=== PATIENT | female | born 1960 | race Caucasian/White ===

== ENCOUNTER → 2017-05-26 | Outpatient (CLI) | payer MEDICAID | LOC: BMCIMAGING 16:11 | PROVIDERS: ATTEND Physician Assistant | DX: M25.562 Pain in left knee (principal) ==

== ENCOUNTER 2017-08-26 13:24 | Day surgery (SDC) | payer MEDICAID ==
[2017-08-26] MEDS ORDERED: LIDOCAINE 1% 2 ML INJ ID PRN (13:36)
[2017-08-26] MEDS ORDERED: LR 1,000 ML IV ONE (13:36)
[2017-08-26 14:01] VITALS: PULSE 54
--- NOTE | 2017-08-26 14:05 | PDANEPAE ---
ANE Past Medical History - Cardiovascular History Hx Hypertension: No Hx Arrhythmias: No Hx Chest Pain: No Hx Coronary Artery / Peripheral Vascular Disease: No Hx CHF / Valvular Disease: No Hx Palpitations: No - Pulmonary History Hx COPD: No Hx Asthma/Reactive Airway Disease: No Hx Recent Upper Respiratory Infection: No Hx Oxygen in Use at Home: No Hx Sleep Apnea: No Sleep Apnea Screening Result - Last Documented: Negative - Neurologic History Hx Cerebrovascular Accident: No Hx Seizures: No Hx Dementia: No - Endocrine History Hx Diabetes: No - Renal History Hx Renal Disorders: No - Liver History Hx Hepatic Disorders: No - Neurological & Psychiatric Hx Hx Neurological and Psychiatric Disorders: No - Cancer History Hx Cancer: No - Congenital Disorder History Hx Congenital Disorders: No - GI History Hx Gastrointestinal Disorders: No - Other Health History Other Health History: NONE - Chronic Pain History Chronic Pain: No - Surgical History Prior Surgeries: NONE ANE Review of Systems Review of Systems: - Exercise capacity METS (RN): 4 METS ANE Patient History - Allergies Allergies/Adverse Reactions: amoxicillin Allergy (Verified 07/15/17 14:29) Rash - NPO status NPO Since - Liquids (Date): 08/26/17 NPO Since - Liquids (Time): 12:00 NPO Since - Solids (Date): 08/24/17 - Smoking Hx Smoking Status: Never smoked - Family Anes Hx Family Hx Anesthesia Complications: NONE ANE Labs/Vital Signs - Vital Signs Blood Pressure: 120/69 Heart Rate: 54 Respiratory Rate: 20 O2 Sat (%): 97 Height: 177.8 cm Weight: 73.936 kg ANE Physical Exam - Airway Neck exam: FROM Mallampati Score: Class 2 Mouth exam: normal dental/mouth exam - Pulmonary Pulmonary: no respiratory distress - Cardiovascular Cardiovascular: regular rate and rhythym - ASA Status ASA Status: I ANE Anesthesia Plan Total IV Anesthesia: Yes
[2017-08-26] MEDS ORDERED: fentaNYL 100 MCG/2 ML INJ ONE (14:06)
[2017-08-26] MEDS ORDERED: PROPOFOL/EMULSION 500 MG/50 ML BOTTLE IV ONE (14:07)
[2017-08-26] MEDS ORDERED: LIDOCAINE 2% 100 MG/5 ML SYR ONE (14:07)
--- NOTE | 2017-08-26 14:31 | PDHPUP ---
History & Physical Update H&P update statement: This history and physical update is based on an assessment of the patient which was completed after admission or registration (within 24 hours), but prior to the surgery/procedure. H&P update: H&P reviewed & patient examined, no change in patient's condition since H&P completed
--- NOTE | 2017-08-26 14:31 | GIREPORT ---
[facility] Surgical Services - Endoscopy Department Patient Name: Cheyanne Stoner Procedure Date: 08/26/2017 2:10 PM Patient Type: Outpatient Attending MD/ ER Physician: Balbir Celaya MD Procedure: Colonoscopy Indications: Screening for colon cancer: Family history of colorectal cancer in dist ant relative(s) 60 or older, Surveillance: Personal history of colonic poly ps (unknown histology) on colonoscopy at age 20. No polyps 5 years ago. Providers: Balbir Celaya MD Medicines: General Anesthesia Complications: No immediate complications. Description of Procedure: After obtaining informed consent, the scope was passed under direct vis ion. Throughout the procedure, the patient's blood pressure, pulse, and oxyg en saturations were monitored continuously. The Colonoscope with irrigatio n channel was introduced through the anus and advanced to the terminal il eum. The colonoscopy was performed with ease. The patient tolerated the proc edure well. The quality of the bowel preparation was excellent. Findings: A diffuse area of moderately melanotic mucosa was found in the entire c olon. Estimated blood loss: none. Estimated Blood Loss: Estimated blood loss: none. Post Op Diagnosis: - Melanotic mucosa in the entire examined colon. - No specimens collected. Recommendation: - Discharge patient to home. - Resume previous diet. - Repeat colonoscopy in 10 years for surveillance. Attending Participation: I personally performed the entire procedure. Balbir Celaya MD Balbir Celaya MD 08/26/2017 2:31:05 PM This report has been signed electronicallyRobhelen Celaya MD Number of Addenda: 0 Note Initiated On: 08/26/2017 2:10 PM Total Procedure Duration Time 0 hours 11 minutes 17 seconds [email or web address]
[2017-08-26] MEDS ORDERED: ALBUTEROL 3 ML DEYVIAL IH PRN (14:32)
[2017-08-26] MEDS ORDERED: NALOXONE HCL 0.4 MG/ML INJ IVP PRN (14:32)
--- NOTE | 2017-08-26 14:32 | POSTANESTH ---
Post Anesthetic Evaluation Cardiovascular Status: Similar to Pre-Op Cond Respiratory Status: Similar to Pre-op Cond. Level of Consciousness/Mental Status: Mildly Sleepy, Arousable Pain Control: Adequate, Prn Tx Ordered Nausea/Vomiting Control: Adequate, Prn Tx Ordered Complications Possibly Related to Anesthesia: None Noted
--- NOTE | 2017-08-26 14:33 | POSTOPPROG ---
Post Op Note Date of Operation: 08/26/17 Surgeon: Balbir Celaya Anesthesia: IV Sedation Pre-op Diagnosis: Distant family h/o cancer. Polyps at age 20, unknown type. No polyp 5yr ago Post-op Diagnosis: Melanosis Inf/Abcess present in the surg proc area at time of surgery?: No
[2017-08-26 14:44] VITALS: TEMP 97.9
[2017-08-26 15:14] VITALS: O2SAT 99
[2017-08-26 15:21] VITALS: BP 96/67; RESP 16
== END 2017-08-26 15:35 | disposition home or self-care (01) ==
LOC: FSGY 13:24
PROVIDERS: ATTEND Internal Medicine Gastroenterology
PROC: 0DJD8ZZ Inspection of Lower Intestinal Tract, Via Natural or Artificial Opening Endoscopic (ICD-10-PCS; principal; 2017-08-26 14:30)
DX: Z12.11 Encounter for screening for malignant neoplasm of colon (principal); K63.89 Other specified diseases of intestine; Z86.010 Personal history of colon polyps; Z80.0 Family history of malignant neoplasm of digestive organs
CPT/HCPCS: J2001; J2704; J3010

== ENCOUNTER → 2018-01-01 | Outpatient (CLI) | payer MEDICAID | LOC: BMCIMAGING 15:10 | PROVIDERS: ATTEND Internal Medicine | DX: N85.2 Hypertrophy of uterus (principal); D25.9 Leiomyoma of uterus, unspecified; N85.8 Other specified noninflammatory disorders of uterus; K63.9 Disease of intestine, unspecified ==

== ENCOUNTER → 2018-11-11 | Outpatient (CLI) | payer MEDICAID | LOC: FIMAGING 09:55 | PROVIDERS: ATTEND Physician Assistant | DX: Z01.818 Encounter for other preprocedural examination (principal); M17.12 Unilateral primary osteoarthritis, left knee; M71.22 Synovial cyst of popliteal space [Baker], left knee ==

== ENCOUNTER → 2018-12-24 | Outpatient (CLI) | payer MEDICAID | LOC: FIMAGING 08:22 | PROVIDERS: ATTEND Internal Medicine | DX: Z12.31 Encounter for screening mammogram for malignant neoplasm of breast (principal) ==

== ENCOUNTER 2019-01-10 08:46 | Observation (INO) | payer MEDICAID ==
--- NOTE | 2019-01-10 06:44 | PDHPUP ---
History & Physical Update H&P update statement: This history and physical update is based on an assessment of the patient which was completed after admission or registration (within 24 hours), but prior to the surgery/procedure. H&P update: no change in patient's condition since H&P completed
--- NOTE | 2019-01-10 06:44 | PDIAF ---
- Diagnosis Diagnosis: left knee djd Code Status: Full Code - Medication Management Discharge Medications: electronically signed and located in the Home Medication List. - Orders Services needed: Home Care, Physical Therapy Home Care Face to Face: I certify that this patient was under my care and that I had the required [id number] encounter meeting the encounter requirements on the discharge day. My findings support the fact that the patient is homebound as defined in Home Care Face to Face Continued: CMS Chapter 7 Medicare Benefits Manual 30.1.1 , The condition of the patient is such that there exists a normal inability to leave home and consequently, leaving home would require a considerable and taxing effort. Diet Recommendation: no restrictions on diet Diet Texture: Regular Texture Diet Additional Instructions: TOTAL JOINT ARTHROPLASTY DISCHARGE INSTRUCTIONS 1. Your surgeon follows the [facility] protocol for reducing your risk of DVT (blood clots) following surgery. Medication will be ordered to prevent blood clots. A sudden increase in calf pain and/or swelling could indicate a blood clot in your leg. If this occurs, please call your surgeon or his/her admissions assistant. An ultrasound of the leg may be necessary to diagnose a blood clot. If you have conditions that make you a higher risk for blood clots, your surgeon may use more aggressive ways to prevent them. Notify your surgeon if you think you are a high risk for blood clots. 2. Wear your white surgical stockings (EPI hose) for 2 weeks. This decreases your swelling and may help prevent blood clots. It is ok to remove EPI hose at night time to give your legs a break. 3. Swelling and bruising in the surgical leg is common. If you feel that it is excessive, please notify your surgeon. 4. Elevate your surgical leg with the ankle above the hip several times every day. Please keep the leg straight when you elevate by putting pillows under your foot. Do not put pillows under your knee. This will make being able to fully straighten more difficult. This is uncomfortable, but try to do it as much as possible. 5. For total knee replacements use compressive wrap on your knee for 3-5 days after surgery, then you can discontinue it. 6. Use a walker or crutches for 1-2 weeks. Progress your weight-bearing as tolerated. You may start to use a cane when you feel stable and safe. 7. You will receive physical therapy instructions in the hospital. Continue those exercises at home. There are additional exercises in the total joint booklet you were given before surgery. Outpatient physical therapy will begin 7- 10 days after surgery. Please schedule this in advance. 8. Use ice on your knee at least 3-5 times every day for 30 minutes. This helps reduce pain and swelling. Also use it at night before falling asleep. 9. Leave your surgical dressing in place for 2 weeks. Your dressing is water resistant, but not waterproof. Cover it with Saran Wrap or Fehiy-n-Paqh before showering. You may shower as soon as you feel safe entering a shower. If you notice bleeding from your incision 2 or 3 days after surgery, please notify your surgeon. 10. Due to narcotics, decreased activity and altered diet, most patients experience constipation after surgery. Use wqew-[id number]-[id number] stool softeners while you are on narcotics. 11. You may drive a car when you are comfortable bearing weight, have good muscular control of your leg and are off narcotics. This usually occurs 2-4 weeks after surgery, depending on which leg was operated on. 12. If there are questions not addressed here, please refer the [facility] book given for more information. If you still have questions, please contact your surgeon s office. 13. If you have a life-threatening emergency, please call 911 and go to the emergency room immediately. For non-life threatening emergencies, please call your physicians office for advice before going to the emergency room. - Follow Up Care Current Providers and Referrals: Isabel Ivan MD [Primary Care Provider] - Will Bonds MD [Medical Doctor] -
[~2019-01-10 08:46] MED LIST: ROPIVACAINE 0.2% 80 MG, EPINEPHrine 0.2 MG, KETOROLAC TROMETHAMINE 30 MG, morphINE 10 M... IU ONE; TRANEXAMIC ACID 1,000 MG in NS 100 ML IV ONE; VANCOMYCIN 1.25 GM in NS 250 ML IV ONE; VANCOMYCIN PHARMACY TO DOSE MISC ONE
[2019-01-10] MEDS ORDERED: FAMOTIDINE 20 MG TAB PO ONE (09:05)
[2019-01-10] MEDS ORDERED: ACETAMINOPHEN 325 MG TAB PO ONE (09:05)
[2019-01-10] MEDS ORDERED: LR 1,000 ML IV ONE (09:08)
[2019-01-10] MEDS ORDERED: CALCIUM CHLORIDE 1 GM/10 ML INJ ONE (09:27)
[2019-01-10] MEDS ORDERED: ceFAZolin 1 GM/5 ML SYR ONE (09:27)
[2019-01-10] MEDS ORDERED: THROMBIN (BOVINE) 5,000 UNIT VIAL TP ONE (09:27)
[2019-01-10] MEDS ORDERED: CITRIC ACID/SODIUM CITRATE 30 ML UDCUP PO ONE (11:20)
[2019-01-10] MEDS ORDERED: SIMETHICONE DROPS 30 ML BOTTLE PO ONE (11:20)
[2019-01-10] MEDS ORDERED: MIDAZOLAM 2 MG/2 ML VIAL IVP ONE (11:20)
--- NOTE | 2019-01-10 11:20 | PDANEPAE ---
ANE History of Present Illness tka ANE Past Medical History - Cardiovascular History Hx Hypertension: No Hx Arrhythmias: No Hx Chest Pain: No Hx Coronary Artery / Peripheral Vascular Disease: No Hx CHF / Valvular Disease: No Hx Palpitations: No - Pulmonary History Hx COPD: No Hx Asthma/Reactive Airway Disease: No Hx Recent Upper Respiratory Infection: No Hx Oxygen in Use at Home: No Hx Sleep Apnea: No Sleep Apnea Screening Result - Last Documented: Negative - Neurologic History Hx Cerebrovascular Accident: No Hx Seizures: No Hx Dementia: No - Endocrine History Hx Diabetes: No Hypothyroid: No Hyperthyroid: No Obesity: no - Renal History Hx Renal Disorders: No - Liver History Hx Hepatic Disorders: No - Neurological & Psychiatric Hx Hx Neurological and Psychiatric Disorders: No Neurological / Psychiatric History Comment: hx lymes disease - Cancer History Hx Cancer: No - Congenital Disorder History Hx Congenital Disorders: No - GI History GERD: mild Hx Gastrointestinal Disorders: No - Other Health History Other Health History: NONE - Chronic Pain History Chronic Pain: No - Surgical History Prior Surgeries: NONE ANE Review of Systems Review of Systems: - Exercise capacity Exercise capacity: >=4 METS METS (RN): 5 METS ANE Patient History - Allergies Allergies/Adverse Reactions: amoxicillin Allergy (Verified 12/27/18 11:43) Rash - Home Medications Home Medications: Progesterone, Micronized [Progesterone] 200 mg PO DAILY 12/23/18 [Last Taken Unknown] Ascorbic Acid [Vitamin C 500 mg (*)] 500 mg PO DAILY 12/27/18 [Last Taken Unknown] Cholecalciferol Vit D3 [Vitamin D3 (*)] 1,000 units PO DAILY 12/27/18 [Last Taken Unknown] Herbals/Supplements -Info Only 1 ea PO DAILY 12/27/18 [Last Taken Unknown] [place]-3 Fatty Acids [Fish Oil 1000 mg (*)] 1,000 mg PO DAILY 12/27/18 [Last Taken Unknown] - NPO status NPO Status: no food or drink >8 hours NPO Since - Liquids (Date): 01/09/19 NPO Since - Liquids (Time): 06:20 NPO Since - Solids (Date): 01/09/19 NPO Since - Solids (Time): 01:20 - Smoking Hx Smoking Status: Never smoked - Family Anes Hx Family Hx Anesthesia Complications: NONE ANE Labs/Vital Signs - Vital Signs Blood Pressure: 106/69 Heart Rate: 54 Respiratory Rate: 15 O2 Sat (%): 95 Height: 175.26 cm Weight: 74.843 kg ANE Physical Exam - Airway Mallampati Score: Class 2 Mouth exam: normal dental/mouth exam - Pulmonary Pulmonary: no respiratory distress - Cardiovascular Cardiovascular: regular rate and rhythym - ASA Status ASA Status: I ANE Anesthesia Plan Anesthesia Plan: spinal Regional Anesthesia: adductor canal FNB
[2019-01-10] MEDS ORDERED: SIMETHICONE DROPS 30 ML BOTTLE ONE (11:23)
[2019-01-10] MEDS ORDERED: BUPIVACAINE 0.25% 30 ML SDV ONE (12:02)
[2019-01-10] MEDS ORDERED: PROPOFOL/EMULSION 500 MG/50 ML BOTTLE IV ONE ×2 (12:08→13:15)
[2019-01-10] MEDS ORDERED: LIDOCAINE 2% 5 ML SDV ONE (12:08)
[2019-01-10] MEDS ORDERED: fentaNYL 100 MCG/2 ML INJ ONE ×3 (13:33→15:07)
[2019-01-10] MEDS ORDERED: ROPIVACAINE HCL 150 MG/30 ML INJ ONE (13:47)
[2019-01-10] MEDS ORDERED: NALOXONE HCL 0.4 MG/ML INJ IVP PRN (13:50)
[2019-01-10] MEDS ORDERED: ALBUTEROL 3 ML DEYVIAL IH PRN (13:50)
[2019-01-10] MEDS ORDERED: LR 500 ML IV PRN (13:50)
[2019-01-10] MEDS ORDERED: ONDANSETRON 4 MG/2 ML VIAL IVP PRN ×2 (13:50→14:03)
[2019-01-10] MEDS ORDERED: DIPHENOXYLATE/ATROPINE LOMOTIL 1 TAB PO PRN (14:03)
[2019-01-10] MEDS ORDERED: MAGNESIUM HYDROXIDE 30 ML UDCUP PO PRN (14:03)
[2019-01-10] MEDS ORDERED: diphenhydrAMINE 25 MG CAP PO PRN (14:03)
[2019-01-10] MEDS ORDERED: CYCLOBENZAPRINE 10 MG TAB PO PRN (14:03)
[2019-01-10] MEDS ORDERED: BISACODYL 10 MG SUPP PR PRN (14:03)
[2019-01-10] MEDS ORDERED: TEMAZEPAM 15 MG CAP PO PRN (14:03)
[2019-01-10] MEDS ORDERED: POLYETHYLENE GLYCOL 3350 17 GM PKT PO PRN (14:03)
[2019-01-10] MEDS ORDERED: LACTULOSE 20 GM/30 ML UDCUP PO PRN (14:03)
[2019-01-10] MEDS ORDERED: METOCLOPRAMIDE 10 MG/2 ML VIAL IVP PRN (14:03)
[2019-01-10] MEDS ORDERED: PROMETHAZINE HCL 25 MG/ML INJ IVP PRN (14:03)
[2019-01-10] MEDS ORDERED: PROMETHAZINE HCL 25 MG SUPPR PR PRN (14:03)
[2019-01-10] MEDS ORDERED: ONDANSETRON DISINTEGRATING 4 MG TAB PO PRN (14:03)
--- NOTE | 2019-01-10 14:03 | POSTOPPROG ---
Post Op Note Date of Operation: 01/10/19 Surgeon: Will Bonds Bowling Pin Refinisher: brayan Anesthesiologist: lazaro Anesthesia: Spinal Pre-op Diagnosis: left knee djd Post-op Diagnosis: same Indication: same Procedure: left tka Inf/Abcess present in the surg proc area at time of surgery?: No Depth: Deep Incisional (Fascial) EBL: 100-500
--- NOTE | 2019-01-10 14:17 | POSTANESTH ---
Post Anesthetic Evaluation Cardiovascular Status: Normal, Stable Respiratory Status: Normal, Stable Level of Consciousness/Mental Status: Can Participate in Eval Pain Control: Adequate, Prn Tx Ordered Nausea/Vomiting Control: Adequate, Prn Tx Ordered Complications Possibly Related to Anesthesia: None Noted
[2019-01-10] MEDS ORDERED: LR 1,000 ML IV SCH (14:30)
[2019-01-10] MEDS: fentaNYL 100 MCG/2 ML INJ IVP PRN ×3 (14:35→15:08)
[2019-01-10] MEDS: oxyCODONE IR 5 MG TAB PO PRN ×2 (16:54→17:44)
[2019-01-10] MEDS: ACETAMINOPHEN 325 MG TAB PO SCH (21:23)
[2019-01-10] MEDS: SENNOSIDES/DOCUSATE SODIUM TAB PO SCH (21:24)
[2019-01-10] MEDS: TRANEXAMIC ACID 650 MG TAB PO SCH (21:24)
[2019-01-10] MEDS: FAMOTIDINE 20 MG TAB PO SCH (21:24)
[2019-01-10] MEDS: ASPIRIN 325 MG TAB PO SCH (21:24)
[2019-01-10] MEDS ORDERED: VANCOMYCIN HCL/NORMAL SALINE 250 ML IV ONE (23:30)
[2019-01-11] MEDS: ACETAMINOPHEN 325 MG TAB PO SCH ×2 (02:46→08:17)
[2019-01-11] MEDS: oxyCODONE IR 5 MG TAB PO PRN (05:45)
[2019-01-11] MEDS: TRANEXAMIC ACID 650 MG TAB PO SCH (05:45)
--- NOTE | 2019-01-11 07:51 | PDIAF ---
- Diagnosis Diagnosis: left knee djd Code Status: Full Code - Medication Management Discharge Medications: electronically signed and located in the Home Medication List. - Orders Services needed: Home Care, Physical Therapy Home Care Face to Face: I certify that this patient was under my care and that I had the required [id number] encounter meeting the encounter requirements on the discharge day. My findings support the fact that the patient is homebound as defined in Home Care Face to Face Continued: CMS Chapter 7 Medicare Benefits Manual 30.1.1 , The condition of the patient is such that there exists a normal inability to leave home and consequently, leaving home would require a considerable and taxing effort. Diet Recommendation: no restrictions on diet Diet Texture: Regular Texture Diet Additional Instructions: TOTAL JOINT ARTHROPLASTY DISCHARGE INSTRUCTIONS 1. Your surgeon follows the [facility] protocol for reducing your risk of DVT (blood clots) following surgery. Medication will be ordered to prevent blood clots. A sudden increase in calf pain and/or swelling could indicate a blood clot in your leg. If this occurs, please call your surgeon or his/her assistant chief train dispatcher. An ultrasound of the leg may be necessary to diagnose a blood clot. If you have conditions that make you a higher risk for blood clots, your surgeon may use more aggressive ways to prevent them. Notify your surgeon if you think you are a high risk for blood clots. 2. Wear your white surgical stockings (EPI hose) for 2 weeks. This decreases your swelling and may help prevent blood clots. It is ok to remove EPI hose at night time to give your legs a break. 3. Swelling and bruising in the surgical leg is common. If you feel that it is excessive, please notify your surgeon. 4. Elevate your surgical leg with the ankle above the hip several times every day. Please keep the leg straight when you elevate by putting pillows under your foot. Do not put pillows under your knee. This will make being able to fully straighten more difficult. This is uncomfortable, but try to do it as much as possible. 5. For total knee replacements use compressive wrap on your knee for 3-5 days after surgery, then you can discontinue it. 6. Use a walker or crutches for 1-2 weeks. Progress your weight-bearing as tolerated. You may start to use a cane when you feel stable and safe. 7. You will receive physical therapy instructions in the hospital. Continue those exercises at home. There are additional exercises in the total joint booklet you were given before surgery. Outpatient physical therapy will begin 7- 10 days after surgery. Please schedule this in advance. 8. Use ice on your knee at least 3-5 times every day for 30 minutes. This helps reduce pain and swelling. Also use it at night before falling asleep. 9. Leave your surgical dressing in place for 2 weeks. Your dressing is water resistant, but not waterproof. Cover it with Saran Wrap or Lqken-y-Srnj before showering. You may shower as soon as you feel safe entering a shower. If you notice bleeding from your incision 2 or 3 days after surgery, please notify your surgeon. 10. Due to narcotics, decreased activity and altered diet, most patients experience constipation after surgery. Use vkhe-kvj-[id number] stool softeners while you are on narcotics. 11. You may drive a car when you are comfortable bearing weight, have good muscular control of your leg and are off narcotics. This usually occurs 2-4 weeks after surgery, depending on which leg was operated on. 12. If there are questions not addressed here, please refer the [facility] book given for more information. If you still have questions, please contact your surgeon s office. 13. If you have a life-threatening emergency, please call 911 and go to the emergency room immediately. For non-life threatening emergencies, please call your physicians office for advice before going to the emergency room. - Follow Up Care Current Providers and Referrals: Isabel Ivan MD [Primary Care Provider] - Will Bonds MD [Medical Doctor] -
--- NOTE | 2019-01-11 07:52 | SOAPPROG ---
SOAP Progress Note Assessment/Plan: Assessment: s/p tka Plan:wbat rom as azul dvt precautions f/u at two weeks seek attn for increasing complaints 01/11/19 07:51 Subjective: min pain no cp or sob azul ppo Objective: Vital Signs Temp Pulse Resp BP Pulse Ox 36.4 C 62 16 104/66 99 01/11/19 07:50 01/11/19 07:50 01/11/19 07:50 01/11/19 07:50 01/11/19 07:50 Laboratory Results 01/11/19 04:22 01/10/19 01/11/19 01/12/19 05:59 05:59 05:59 Intake Total 3165 Output Total 1850 Balance 1315 dressing intact intact pf,df,ehl toes warm and pink neg homans owen xrays stable anatomic alignemnt no fx or lucency ICD10 Worksheet Patient Problems: Problems Problem Status Onset Arthritis of knee Acute - ICD10 Problem Qualifiers (1) Arthritis of knee
[2019-01-11] MEDS: SENNOSIDES/DOCUSATE SODIUM TAB PO SCH (08:17)
[2019-01-11] MEDS: FAMOTIDINE 20 MG TAB PO SCH (08:18)
[2019-01-11] MEDS: ASPIRIN 325 MG TAB PO SCH (08:18)
[2019-01-11] MEDS ORDERED: PROGESTERONE,MICR 100 MG CAP PO SCH (09:00)
[2019-01-11 10:52] VITALS: BP 101/62
--- NOTE | 2019-01-11 13:44 | ASMTCMCOM ---
CM Note CM Note Notes: Pt medically stable for d/c with [facility] PT. Orders to be obtained via [employer]. Pt d/c address/phone verified. Date Signed: 01/11/2019 01:39 PM Electronically Signed By:JOSEFA Rosenthal
--- NOTE | 2019-01-11 13:45 | ASDISCHSUM ---
Discharge Information Plan Status:Home with Home Health Medically Cleared to Leave: Discharge Date:01/11/2019 01:32 PM CM D/C Disposition: ADT D/C Disposition:Home Health Service Projected Discharge Date:01/11/2019 11:00 AM Transportation at D/C: Discharge Delay Reason: Follow-Up Date:01/11/2019 11:00 AM Discharge Slot: Final Diagnosis: Placement Information Referral Type:*Home Health Care Services Referral ID:[id number] Provider Name:[facility] Address 1:[address] Address 2: City:[place] Selection Factors: State:[place] Patient Contact Information Contact Name:TAYLORCHRISTIANA Relationship:Mother Address: Work Phone: City: [facility] Phone: [facility] Code: Email: Financial Information Financial Class:Medicaid Primary Plan Desc:MEDICAID [facility] TELEPHONE [place] Primary Plan Number:[id number] Secondary Plan Desc: Secondary Plan Number: Assessment Information LACE LACE Length of stay for Answers: 2 days current admission Acuity / Level of Answers: No Care: Did the patient have an inpatient admission? # of Emergency department Answers: 0 visits in the last 6 months Score: 2 Date Signed: 01/11/2019 01:39 PM Electronically Signed By:JOSEFA Rosenthal [facility] CM Progress Note CM Note CM Note Notes: Pt medically stable for d/c with [facility] PT. Orders to be obtained via [employer]. Pt d/c address/phone verified. Date Signed: 01/11/2019 01:39 PM Electronically Signed By:JOSEFA Rosenthal Intervention Information
== END 2019-01-11 13:32 | disposition home health service (06) ==
LOC: F3N 08:46 → INTOOBSV 08:46 → F3N 15:57
PROVIDERS: ADMIT Orthopaedic Surgery; ATTEND Orthopaedic Surgery
PROC: 0SRD0JZ Replacement of Left Knee Joint with Synthetic Substitute, Open Approach (ICD-10-PCS; principal; 2019-01-10 11:00)
DX: M17.12 Unilateral primary osteoarthritis, left knee (principal)
CPT/HCPCS: 27447; 73560; 97116; 97161; 97165; G0378; J0171; J1885; J2250; J2270; J2704; J2795; J3010; J3370

== ENCOUNTER → 2019-02-21 | Outpatient (CLI) | payer MEDICAID | LOC: BMCIMAGING 08:24 | PROVIDERS: ATTEND Orthopaedic Surgery | DX: Z47.1 Aftercare following joint replacement surgery (principal); Z96.652 Presence of left artificial knee joint ==